=== PATIENT | female | born 1965 | race Caucasian/White ===

== ENCOUNTER 2020-05-30 05:50 | Day surgery (SDC) | payer MEDICARE, OTHER ==
[2020-05-28 13:05] LABS: COVID AG,FIA SOURCE NASOPHARYNGEAL
[~2020-05-30] VITALS: Ht 160 cm; Wt 124.1 kg
[2020-05-30] MEDS ORDERED: SODIUM CHLORIDE 0.9% 1,000 ML ONE (06:10)
[2020-05-30] MEDS ORDERED: FLUT44HFA PO (06:31)
[2020-05-30] MEDS ORDERED: FLUT1AER PO (06:31)
[2020-05-30] MEDS ORDERED: ALBU90AE IH (06:31)
[2020-05-30] MEDS ORDERED: OXYC-530 PO (06:31)
[2020-05-30] MEDS ORDERED: DIPH25CA48 PO (06:31)
[2020-05-30] MEDS ORDERED: MONT10TA97 PO (06:31)
[2020-05-30] MEDS ORDERED: TRAZ-257 PO (06:31)
[2020-05-30] MEDS ORDERED: FLUT16H NASAL (06:31)
[2020-05-30] MEDS ORDERED: SODIUM CHLORIDE 0.9% 1,000 ML IV ONE (07:00)
[2020-05-30] MEDS ORDERED: MIDAZOLAM HCL 2 MG/2 ML VIAL ONE (07:20)
[2020-05-30] MEDS ORDERED: FentaNYL CITRATE-PF 100 MCG/2 ML VIAL ONE (07:21)
[2020-05-30] MEDS ORDERED: MethylPREDNISolone SOD SUCC 125 MG/2 ML VIAL ONE (08:56)
[2020-05-30] MEDS ORDERED: MethylPREDNISolone SOD SUCC 125 MG/2 ML VIAL IVP ONE (09:00)
[2020-05-30] MEDS ORDERED: ALBUTEROL SULFATE 2.5 MG/0.5 ML NEB SOLUTION NEB ONE (17:31)
[2020-05-30] MEDS ORDERED: LIDOCAINE 2% 30 ML JELLY ONE (17:31)
[2020-05-30] MEDS ORDERED: BENZOCAINE 20% 50 MCG/SPRAY 57 GM ONE (17:31)
[2020-05-30] MEDS ORDERED: LIDOCAINE 4% 50 ML SOLUTION ONE (17:31)
[2020-05-30] MEDS ORDERED: OXYGEN THERAPY IH SCH (20:00)
== END 2020-05-30 10:00 | disposition home or self-care (01) ==
LOC: SURGERY 05:50
PROVIDERS: ATTEND Internal Medicine Critical Care Medicine
DX: R05 Cough (principal); R04.2 Hemoptysis; R91.1 Solitary pulmonary nodule; J34.89 Other specified disorders of nose and nasal sinuses; J98.8 Other specified respiratory disorders; J38.4 Edema of larynx; B37.0 Candidal stomatitis; G47.33 Obstructive sleep apnea (adult) (pediatric); K21.9 Gastro-esophageal reflux disease without esophagitis; M19.90 Unspecified osteoarthritis, unspecified site; E78.00 Pure hypercholesterolemia, unspecified; J44.9 Chronic obstructive pulmonary disease, unspecified; Z20.828 Contact with and (suspected) exposure to other viral communicable diseases; Z79.899 Other long term (current) drug therapy
CPT/HCPCS: 31623; 31624; 71045; 87015; 87070; 87101; 87205; 87206; 87220; 87426; 88108; 88312; 93005; C9803; J2250; J2930; J3010; J7030; J7613; Z7610